=== PATIENT | male | born 1995 ===

== ENCOUNTER 2025-04-17 15:41 | Outpatient (AMB) | payer OTHER, SELFPAY ==
--- NOTE | 2025-04-17 16:15 | MHC.OFFVIS ---
Intake Visit Reasons: 6m Allergies aripiprazole Allergy (Unknown, Verified 04/10/25 09:32) Unknown prednisone Allergy (Unknown, Verified 04/10/25 09:32) Unknown HPI Comments Details: 29 years old man with chronic static encephalopathy of unknown cause associated with hearing impairment, depression, anxiety, and OCD/ADD type of symptoms. [facility] Medical History (Updated 04/17/25 @ 16:18 by Rosa M Angel MD) Complex partial seizures Deafness Migraine Chronic static encephalopathy Review of Systems Const Details: - Neurological: Denies recent seizures - Sleep: Reports experiencing mouth opening and drooling during sleep; advised as typical with relaxation. Physical Exam Neuro Other: Mental Status: He is alert and awake communicating with sign language with no sign of confusion. Cranial Nerves: CN II: Visual barber full to confrontation, visual acuity intact. CN III, IV, : Pupils equal, round, reactive to light and accommodation. Extraocular movements are normal. CN V: Facial sensation is normal. CN VII: Facial movements symmetrical. CN VIII: Hearing intact to bedside conversation is normal. CN IX, X: Palate elevates symmetrically. CN XI: Shoulder shrug and head turn symmetrical. CN XII: Tongue midline without atrophy or fasciculations. Motor: Bulk and tone normal in all extremities. No significant muscle weakness in arms and legs. No drift. Extrapyramidal: Full facial expressions and blinking. No rigidity. Movements are appropriate with no tremor or abnormality. Speech: Normal; no dysarthria or tremor. Assessment & Plan Assessment & Plan (1) Chronic static encephalopathy: Code(s): G93.49 - Other encephalopathy Category: Medical Plan: During the visit, we discussed the ongoing management of the patient's seizure disorder. It was determined that due to the lack of recent seizure episodes, lorazepam is not required in the treatment regimen. Continued use of Depakote was advised to maintain seizure control. The benefits of this maintenance therapy include minimized seizure activity and stability without additional sedative medication. Follow-up was scheduled in six months to monitor seizures and efficacy of the current treatment plan. (2) Complex partial seizures: Comment: EEG at office 2020: [place] CT brain WO at [facility] in December 2019: WNL EEG at [facility] in 2018: WNL. Code(s): G40.209 - Localization-related (focal) (partial) symptomatic epilepsy and epileptic syndromes with complex partial seizures, not intractable, without status epilepticus Category: Medical (3) Deafness: Code(s): H91.90 - Unspecified hearing loss, unspecified ear Category: Medical Qualifiers: Laterality: bilateral Qualified Code(s): H91.93 - Unspecified hearing loss, bilateral Plan Impression: a: Stable seizure disorder with no seizures for many years b: Deafness c: Behavioral disorder Rec: a: Continue divalproex acid 500mg bid b: DC Ativan Medications: Refilled divalproex 500 mg PO BID 180 tabs 1RF Coding Level of Care Code Tele Est Pt Level 4 (95264) Diagnoses Chronic static encephalopathy G93.49 Complex partial seizures G40.209 Bilateral deafness H91.93 Laterality: bilateral
--- OUTSIDE RECORDS SUMMARY | 2025-04-17 17:43 | XMS_ITS | Clinical Summary ---
Author Organization [facility] Address [address] [place] [address] Phone Care Team Providers Care Test Clerk Name Role Phone Group, [facility] Primary Care Provider [phone] Group, [facility] Unavailable [phone] Group, [facility] Unavailable [phone] Social History Tobacco Use Types Packs/Day Years Used Date Smoking Tobacco: Never Assessed Sex and Gender Information Value Date Recorded Sex Assigned at Not on file Legal Sex Male 3:12 PM EDT Gender Identity Not on file Sexual Orientation Not on file Plan of Treatment Not on file Care Teams Test Clerk Relationship Specialty Start Date End Date Group, [facility] [address] [place] [address] PCP - General 03/19/15 Group, [facility] [address] [place] [address] PCP - Clinical PCP 03/19/15 Group, [facility] [address] [place] [address] PCP - Insurance PCP 03/19/15
--- OUTSIDE RECORDS SUMMARY | 2025-04-17 17:43 | XMS_ITS ---
Author Name [facility] Organization Unknown Care Team Organization Name Specialty Phone Email Start Date End Da te [facility] Bertrand Elaine Primary Care 10/29/20222023 [facility] Radha Bill Primary Care 07/01/20222023
--- OUTSIDE RECORDS SUMMARY | 2025-04-17 17:43 | XMS_ITS | Clinical Summary ---
Author Organization [facility] Address [address] [place] [id number] Phone Care Team Providers Care Boats Renter Name Role Phone Bertrand Elaine MD Primary Care Provider [phone] Surgical History Surgery Date Site/Laterality Comments OTHER SURGICAL HISTORY PROCEDURE: DENIES PREVIOUS SURGERY Medical History Medical History Date Comments ADD (attention deficit disorder) 04/18/2019 DX:ADD (attention deficit disorder) Anxiety 04/18/2019 DX:Anxiety Intellectual disability 04/18/2019 DX:Intel lectual disability Pituitary insufficiency ([facility] V24) 04/18/2019 DX:Pituitary insufficiency ([facility]) Deaf 04/18/2019 DX:Deaf; COMMENT : Sign Language Urine incontinence 04/18/2019 DX:Urine inco ntinence Constipation 04/18/2019 DX:Constipation Substance abuse in remission ([facility] V24, [facility] V28) 04/18/2019 DX:Substance abuse in remiss ion ([facility]); COMMENT: Huffing (2017), Marijuana 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/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 DX:Visual f ield defects Uncomplicated asthma 04/29/2019 DX:Uncompli cated asthma Epididymitis, right 03/29/2021 DX:Epididymi tis, right; COMMENT: Persistent PVU Family History Medical History Relation Name Comments Colon cancer Neg Hx Social History Tobacco Use Types Packs/Day Years Used Date Smoking Tobacco: Former Smokeless Tobacco: Never Alcohol Use Standard Drinks/Week Comments No 0 (1 standard drink = 0.6 oz pur e alcohol) Sex and Gender Information Value Date Recorded Sex Assigned at Not on file Legal Sex Male 3:03 AM EST Gender Identity Not on file Sexual Orientation Not on file Obstetrics History Last Filed Vital Signs Vital Sign Reading Time Taken Comments Blood Pressure 142/89 10/15/2022 1:35 PM EST Pulse 94 10/15/2022 1:35 PM EST Temperature - - Respiratory Rate - - Oxygen Saturation - - Inhaled Oxygen Concentration - - Weight 80.7 kg (178 lb) 10/30/2022 1:55 PM EST Height 152.4 cm (5') 10/30/2022 1:55 PM EST Body Mass Index 34.76 10/30/2022 1:55 PM EST Plan of Treatment Health Maintenance Due Date Last Done Comments Hepatitis A Vaccines (1 of 2 - Risk 2-dose series) 2013 Hepatitis B Vaccines (1 of 3 - 19+ 3-dose series) 2013 Pneumococcal Vaccine: Pediatrics (0 to 5 Years) and At-Risk Patients (6 to 49 Years) (1 of 2 - PCV) 2013 HIV Screening 08/02/2022 Hepatitis C Screening 08/02/2022 Social Influencers of Health Screening 08/02/2022 COVID-19 Vaccine (4 - 2023-2 5 season) 2024 07/12/2021, 11/19/2020, 10/29/2020 Depression Screening 08/24/2024 Influenza Vaccine (#1) 2025 9, 04/24/2019 DTaP,Tdap,and Td Vaccines (2 - Td or Tdap) 09/05/2030 09/05/2020 HIB Vaccines Aged Out No longer eligi ble based on patient's age to complete this topic HPV Vaccines Aged Out No longer eligi ble based on patient's age to complete this topic IPV Vaccines Aged Out No longer eligi ble based on patient's age to complete this topic MMR Vaccines Aged Out No longer eligi ble based on patient's age to complete this topic Meningococcal ACWY Vaccine Aged Out N o longer eligible based on patient's age to complete this topic Meningococcal B Vaccine Aged Out No l onger eligible based on patient's age to complete this topic RSV Immunization Patients Under 20 months Aged Out No longer eligible b ased on patient's age to complete this topic Varicella Vaccines Aged Out No longer eligible based on patient's age to complete this topic Care Teams Boats Renter Relationship Specialty Start Date End Date Bertrand Elaine MD PCP - General Internal Medicine 02/03/22
== END 2025-04-17 16:29 | disposition home or self-care (01) ==
LOC: HO.HSM 15:42
PROVIDERS: PCP Internal Medicine; Visit Provider Psychiatry & Neurology Neurology
DX: G93.49 Other encephalopathy (principal); G40.209 Localization-related (focal) (partial) symptomatic epilepsy and epileptic syndromes with complex partial seizures, not intractable, without status epilepticus; H91.93 Unspecified hearing loss, bilateral
CPT/HCPCS: 99214

== ENCOUNTER → 2025-04-17 15:41 | Outpatient (BNVA) | payer OTHER, SELFPAY | PROVIDERS: PCP Internal Medicine; Visit Provider Psychiatry & Neurology Neurology | DX: G40.209 Localization-related (focal) (partial) symptomatic epilepsy and epileptic syndromes with complex partial seizures, not intractable, without status epilepticus (principal); G93.49 Other encephalopathy; H91.93 Unspecified hearing loss, bilateral; F32.A Depression, unspecified; F41.9 Anxiety disorder, unspecified | CPT/HCPCS: 99212 ==